=== PATIENT | female | born 1980 | race Caucasian/White ===

== ENCOUNTER 2017-01-15 03:08 | Emergency (ER) | payer OTHER ==
[~2017-01-15] VITALS: Ht 162.6 cm; Wt 90.7 kg
--- NOTE | 2017-01-15 03:16 | ED GI/GU/ABDOMINAL COMPLAINT ---
History of Present Illness General Chief Complaint: Female Urogenital Problems Stated Complaint: "PER PT YEAST,SWOLLEN & PAINFULL VAGINA" Source: patient Exam Limitations: no limitations Vital Signs & Intake/Output Vital Signs & Intake/Output Vital Signs Date Time Temp Pulse Resp B/P B/P Pulse O2 O2 Flow FiO2 Mean Ox Delivery Rate 01/15 0325 96.4 105 20 128/74 99 Room Air Allergies Uncoded Allergies: PAIN MEDS (Intermediate, VOMITING 01/15/17) Reconcile Medications Cephalexin (Keflex) 500 MG CAPSULE 1 CAP PO 4 TIMES/DAY cellulitis/abscess Fluconazole (Diflucan) 150 MG TABLET 1 TAB PO ONCE infection take 1 tab and then repeat in 1 week to prevent yeast infection Ibuprofen 800 MG TABLET 1 TAB PO TID pain Sulfamethoxazole/Trimethoprim (Bactrim Ds Tablet) 800 MG-160 MG TABLET 1 TAB PO BID abscess/infection Triage Nurses Notes Reviewed? yes ? n Is pt currently ? No Onset: Abrupt Duration: day(s):, getting worse Timing: single episode today Quality/Severity: burning, sharpness Location: left labia Radiation: no radiation Activities at Onset: none Prior Abdominal Problems: none Modifying Factors: Worsens With: palpation. Associated Symptoms: swelling, redness, tenderness HPI: 36 yo woman in prior good health, presents with left labial swelling, tenderness, redness to palpation. No drainage. She has tried monistat without improvement. She has no vaginal discharge, dysuria, diarrhea, fever. She is otherwise well. Past History Travel History Traveled to [place] past 21 day No Medical History Any Pertinent Medical History? see below for history Surgical History Surgical History: none Family History Hx Contributory? No Review of Systems Review of Systems Constitutional: Reports: no symptoms. EENTM: Reports: no symptoms. Respiratory: Reports: no symptoms. Cardiovascular: Reports: no symptoms. GI: Reports: no symptoms. Genitourinary: Reports: no symptoms. Musculoskeletal: Reports: no symptoms. Skin: Reports: no symptoms. Neurological/Psychological: Reports: no symptoms. Hematologic/Endocrine: Reports: no symptoms. Immunologic/Allergic: Reports: no symptoms. All Other Systems: Reviewed and Negative Physical Exam Physical Exam General Appearance: well developed/nourished, mild distress Head: atraumatic Eyes: Bilateral: normal appearance. Neck: normal inspection Respiratory: no respiratory distress Cardiovascular: regular rate/rhythm Gastrointestinal: normal bowel sounds, soft, non-tender Pelvic: left labia erythematous, swollen, tender to palpation consistent with abscess at bartholin's gland Extremities: normal range of motion Neurologic/Psych: no motor/sensory deficits, awake, alert, oriented x 3 Core Measures ACS in differential dx? No Severe Sepsis Present: No Septic Shock Present: No Progress Differential Diagnosis: cellulitis vs yeast infection vs abscess vs other. Plan of Care: Current Medications Sig/Noelle Start time Last Medication Dose Stop Time Status Admin Cephalexin 500 MG ONCE ONE 01/15 330 UNVr (Keflex) 01/15 331 Ibuprofen 800 MG ONCE ONE 01/15 330 UNVr (Motrin) 01/15 331 Trimethoprim/ 1 TAB ONCE ONE 01/15 330 UNVr Sulfamethoxazole 01/15 331 (Bactrim DS) Initial ED EKG: none Departure Departure Disposition: HOME OR SELF CARE Condition: Stable Clinical Impression Primary Impression: Bartholin's gland abscess Referrals: PATIENT HAS NO PRIMARY CARE DR (PCP/Family) Departure Forms: Customer Survey General Discharge Information Prescriptions: Current Visit Scripts Sulfamethoxazole/Trimethoprim (Bactrim Ds Tablet) 1 TAB PO BID #20 TAB Cephalexin (Keflex) 1 CAP PO 4 TIMES/DAY #40 CAP Fluconazole (Diflucan) 1 TAB PO ONCE #2 TAB take 1 tab and then repeat in 1 week to prevent yeast infection Ibuprofen 1 TAB PO TID #30 TAB Comments excellent result... encouraged close follow up with nurse obgyn and /or return to ed. Procedures Incision and Drainage Site: left bartholin's gland abscess Blade Size: 11 I & D Procedure: Yes: betadine prep, sterile drapes applied, sterile dressing applied, wick placed. Progress: small amount of pus and blood. wound packed... excellent hemostasis, no complications.
[2017-01-15 03:25] VITALS: BP 128/74
[2017-01-15] MEDS ORDERED: BACTRIM DS TAB1 EACH PO (03:30)
[2017-01-15] MEDS ORDERED: KEFLEX500 M1 PO (03:30)
[2017-01-15] MEDS ORDERED: IBUPROFEN800 M1 PO (03:30)
[2017-01-15] MEDS ORDERED: DIFLUCAN150 M1 PO (03:30)
== END 2017-01-15 04:04 ==
LOC: ERH 03:08
DX: N75.1 Abscess of Bartholin's gland (principal)